=== PATIENT | female | born 1995 | race Caucasian/White ===

== ENCOUNTER 2020-11-20 18:09 | Outpatient (CLI) | payer OTHER ==
[~2020-11-20] VITALS: Ht 152.4 cm; Wt 65.7 kg
[2020-11-20] MEDS ORDERED: PRENTAB9 PO (18:24)
[2020-11-20 18:26] VITALS: BP 108/72
[2020-11-20 19:08] VITALS: BP 121/74
[2020-11-20] MEDS ORDERED: ACETAMINOPHEN 500 MG TAB PO PRN (20:20)
[2020-11-20 20:31] VITALS: BP 99/55
[2020-11-20 20:31] LABS: APPEARANCE, URINE CLEAR (CLEAR); BACTERIA, URINE AUTO 1+ (NEGATIVE); BILIRUBIN, URINE AUTO NEGATIVE (NEGATIVE); BLOOD, URINE BLOOD NEGATIVE (NEGATIVE); COLOR, URINE STRAW (YELLOW); GLUCOSE, URINE (UA) AUTO NEGATIVE (NEGATIVE); KETONE, URINE AUTO NEGATIVE (NEGATIVE); LEUKOCYTE ESTERASE, URINE AUTO 1+ (NEGATIVE); MUCUS, URINE SMALL (NEGATIVE); NITRITE, URINE AUTO NEGATIVE (NEGATIVE); PROTEIN, URINE AUTO NEGATIVE (NEGATIVE); RBC, URINE AUTO 1 /HPF (0-3); SPECIFIC GRAVITY URINE AUTO 1.008 (1.002-1.035); SQUAMOUS EPITHELIAL CELL UR AU 1 /HPF (0-6); UROBILINOGEN, URINE AUTO 0.2 mg/dL (0.0-2.0); WBC, URINE AUTO 6 /HPF (0-3)
[2020-11-20] MEDS ORDERED: NITROFURANTOIN (MACROBID) 100 MG CAP PO SCH (21:10)
[2020-11-20] MEDS ORDERED: NITR100C2 PO (21:33)
--- NOTE | 2020-11-20 21:33 | IPNPDOC ---
Text Note Date of Service The patient was seen on 11/20/20. NOTE Outpatient 25yo [id number] MARLENE 02/06/2021. Presents @ 29 wks with complaints of cramping and right sided pain. Reports good movement. Denies LOF, bleeding. History significant for first delivery @ 30 wks, followed by 2 term deliveries. Currently on [place] this . NAD VSS, afebrile, normotensive Cat I tracing without UC UA + leuk esterase and WBC TVUS shows cervical length 5.7cm, closed and no funneling Start Macrobid. Enc increased fluids Keep appt with provider. VS,Fishbone, I+O VS, Fishbone, I+O Vital Signs Date Time Temp Pulse Resp B/P (MAP) Pulse Ox O2 Delivery O2 Flow Rate FiO2 11/20/20 19:08 98.0 100 18 121/74 (90) 98 Room Air Dejah Martinez CNM Nov 20, 2020 21:33
--- NOTE | 2020-11-20 22:09 | REPVR ---
PROCEDURE INFORMATION: Exam: US , Limited Exam date and time: 11/20/20 (8:42pm) Age: 25 years old Clinical indication: female. Gestational age: 29 weeks 0 days. Cramping. History of delivery. TECHNIQUE: Imaging protocol: Real-time ultrasound of the maternal uterus with image documentation. Examination focused on the clinical indication. COMPARISON: No relevant prior studies available FINDINGS: The LMP is reported to be: 05/01/20 Based on the menstrual history provided, the current expected age = 29 weeks 0 days (with MARLENE = 02/05/21). age parameters were not measured at this time. A single live intrauterine is identified. The fetus lies cephalic. The placenta is anterior, with no evidence of previa. The placenta is Grade I. The fetus appears to be female in gender. The cervix is closed, measuring 5.7 cm in length. No 'funneling' is seen. Umbilical artery S/D ratio = 3.65 (an elevated value for this age). Amniotic fluid volume is elevated, with the SAHIL = 20.7 cm (at the 75th percentile for this age). The deepest fluid pocket = 8.7 cm. The stomach, urinary bladder, facial profile, and kidneys appear unremarkable. IMPRESSION: A single live intrauterine is identified. Based on the menstrual history provided, the current expected age = 29 weeks 0 days (with MARLENE = 02/05/21). heartbeat is seen. The placenta is anterior, with no previa noted. The cervix is closed. Amniotic fluid volume is elevated, with the SAHIL = 20.7 cm (at the 75th percentile for this age). Umbilical artery S/D ratio = 3.65 (an elevated value for this age). Electronically signed by: Manjula Osborne On 11/20/2020 22:08:33 PM
== END 2020-11-20 21:38 | disposition home or self-care (01) ==
LOC: M LDO 18:09
PROVIDERS: ATTEND Advanced Practice Midwife
DX: O26.893 Other specified pregnancy related conditions, third trimester (principal); R10.9 Unspecified abdominal pain; Z3A.29 29 weeks gestation of pregnancy; Z87.51 Personal history of pre-term labor
CPT/HCPCS: 59025; 76815; 76817; 76820; 81001; 87086; G0378; G0463

== ENCOUNTER → 2024-08-21 | Outpatient (CLI) | payer OTHER ==
[~2024-08-21] MED LIST: NITR100C2 PO; PRENTAB9 PO
== END ==
LOC: M RAD 08:45
PROVIDERS: ATTEND Physician Assistant Medical
DX: J32.9 Chronic sinusitis, unspecified (principal)

== ENCOUNTER → 2025-04-10 | Outpatient (CLI) | payer OTHER ==
[~2025-04-10] MED LIST changes: +ISOVUE-370 76% 100 ML VIAL ONE
== END ==
LOC: M PLAIMG 09:06
PROVIDERS: ATTEND Internal Medicine
DX: R61 Generalized hyperhidrosis (principal); R93.2 Abnormal findings on diagnostic imaging of liver and biliary tract; R93.89 Abnormal findings on diagnostic imaging of other specified body structures; M41.9 Scoliosis, unspecified
CPT/HCPCS: 71260; 74177; Q9967

== ENCOUNTER → 2025-04-25 | Outpatient (CLI) | payer OTHER ==
[~2025-04-25] MED LIST changes: -ISOVUE-370 76% 100 ML VIAL ONE
== END ==
LOC: M RAD 14:15
PROVIDERS: ATTEND Physician Assistant
DX: R06.00 Dyspnea, unspecified (principal)